=== PATIENT | male | born 1990 | race Caucasian/White ===

== ENCOUNTER → 2019-04-24 | Emergency (ER) | payer BC ==
[~2019-04-24] VITALS: Ht 177.8 cm; Wt 81.6 kg
[~2019-04-24] MED LIST: KETO10TA2 PO
== END ==
LOC: ER 14:07
DX: S73.192A Other sprain of left hip, initial encounter (principal); M25.552 Pain in left hip; W18.39XA Other fall on same level, initial encounter; Y93.89 Activity, other specified; Y92.89 Other specified places as the place of occurrence of the external cause; Y99.8 Other external cause status